=== PATIENT | male | born 1990 | race Caucasian/White ===

== ENCOUNTER 2024-08-30 11:24 | Emergency (ER) | payer MEDICAID ==
[~2024-08-30] VITALS: Ht 172.7 cm; Wt 94.0 kg
[2024-08-30 11:26] VITALS: O2SAT 98
[2024-08-30 12:02] VITALS: BP 102/50; PULSE 63; RESP 16; TEMP 98.8; O2SAT 100
== END 2024-08-30 12:28 | disposition home or self-care (01) ==
LOC: ER 11:24
DX: M54.9 Dorsalgia, unspecified (principal)
CPT/HCPCS: 99281